=== PATIENT | female | born 1970 | race Caucasian/White ===

== ENCOUNTER 2016-10-03 15:30 | Emergency (ER) | payer BC ==
[2016-10-03 15:53] VITALS: RESP 18
--- NOTE | 2016-10-03 16:03 | ED ---
General Adult HPI - General Chief complaint: Extremity Injury, Lower Stated complaint: left knee pain Time Seen by Provider: 10/03/16 15:56 Source: patient, RN notes reviewed Mode of arrival: ambulatory Limitations: no limitations - History of Present Illness Initial comments: Patient 46-year-old female who presents emergency room today with chief complaint of injury to the left knee that occurred approximately 2 weeks ago. She does admit that a box fell onto the anterior aspect of left knee. She does admit to pain locally to this area also the back of the left knee. She seems to be worse with bending at the left knee. She states she has been able ambulate. She does admit to some mild left-sided calf tenderness. She denies any other complaints or associated symptoms. Patient denies any recent fever, chills, shortness of breath, chest pain, back pain, abdominal pain, nausea or vomiting, numbness or tingling, dysuria or hematuria, constipation or diarrhea, headaches or visual changes, or any other complaints. - Related Data Allergies Allergy/AdvReac Type Severity Reaction Status Date / Time No Known Allergies Allergy Verified 10/03/16 15:53 Review of Systems ROS Statement: Those systems with pertinent positive or pertinent negative responses have been documented in the HPI. ROS Other: All systems not noted in ROS Statement are negative. Past Medical History Additional Past Medical History / Comment(s): ms History of Any Multi-Drug Resistant Organisms: None Reported Past Surgical History: No Surgical Hx Reported Past Psychological History: No Psychological Hx Reported Smoking Status: Never smoker Past Alcohol Use History: None Reported Past Drug Use History: None Reported General Exam - General Exam Comments Initial Comments: General: The patient is awake and alert, in no distress, and does not appear acutely ill. Neck: The neck is supple, there is no tenderness or JVD. Cardiovascular: There is a regular rate and rhythm. No murmur, rub or gallop is appreciated. Respiratory: Lungs are clear to auscultation, respirations are non-labored, breath sounds are equal. No wheezes, stridor, rales, or rhonchi. Musculoskeletal: Normal appearance of her left knee no obvious swelling or deformity. Shows good range of motion. Mild tenderness posterior aspect of left calf. Sensations intact with pulses equal bilaterally 2+ strength is 5/5. Neurological: A&O x 3. CN II-XII intact, There are no obvious motor or sensory deficits. Coordination appears grossly intact. Speech is normal. Skin: Skin is warm and dry and no rashes or lesions are noted. Psychiatric: Normal mood and affect. Limitations: no limitations Course Vital Signs 10/03/16 15:50 Temperature 98.3 F Pulse Rate 75 Respiratory 18 Rate Blood Pressure 117/71 O2 Sat by Pulse 100 Oximetry Medical Decision Making - Medical Decision Making Ultrasound negative for any evidence of DVT. Patient's x-rays negative for any acute abnormalities. Results were discussed with the patient. Patient advised follow-up the family doctor. She is advised to discuss possible options of MRI. She is not from this area she lives in [place], [place]. Patient advised ice elevate the affected area and use ibuprofen for pain. Disposition Clinical Impression: Knee injury Disposition: HOME SELF-CARE Condition: Good Instructions: Knee Pain (ED) Additional Instructions: Please follow-up family doctor and discuss options of a possible MRI. Please discuss that he was seen here in the emergency room had negative ultrasound for DVT and negative x-rays. Please continue to ice elevate the affected area and use ibuprofen for pain. Please return to emergency room if any symptoms increase or worsen or for any other concerns. Time of Disposition: 17:04
--- NOTE | 2016-10-03 16:24 | XR ---
EXAMINATION TYPE: XR knee complete LT DATE OF EXAM: 10/03/2016 4:18 PM CLINICAL HISTORY: pain TECHNIQUE: Three views of the left knee are obtained. COMPARISON: None. FINDINGS: There is no acute fracture/dislocation. The tri-compartment joint spaces appear within no rmal limits. Small suprapatellar joint effusion is noted. The overlying soft tissue appears unremark able. IMPRESSION: There is no acute fracture or dislocation ICD 10 NO FRACTURE, INITIAL EVALUATION
--- NOTE | 2016-10-03 17:05 | US ---
EXAMINATION TYPE: US venous doppler duplex LE LT DATE OF EXAM: 10/03/2016 4:55 PM COMPARISON: NONE CLINICAL HISTORY: Pain. SIDE PERFORMED: left TECHNIQUE: The lower extremity deep venous system is examined utilizing real time linear array sonog sinan with graded compression, doppler sonography and color-flow sonography. VESSELS IMAGED: External Iliac Vein (EIV) Common Femoral Vein Deep Femoral Vein Greater Saphenous Vein * Femoral Vein Popliteal Vein Small Saphenous Vein * Proximal Calf Veins (* superficial vessels) Left Leg: Appears negative for DVT. IMPRESSION: Grayscale, color doppler, spectral doppler imaging performed of the deep veins of the lo wer extremities. There is normal flow, compressibility, vascular waveforms bilaterally. Normal exam . No evidence of deep venous thrombosis in the left leg.
[2016-10-03 17:22] VITALS: BP 133/79; PULSE 61; TEMP 97.9
== END 2016-10-03 17:21 | disposition home or self-care (01) ==
LOC: EC 15:30
DX: S89.92XA Unspecified injury of left lower leg, initial encounter (principal); W20.8XXA Other cause of strike by thrown, projected or falling object, initial encounter; Y92.009 Unspecified place in unspecified non-institutional (private) residence as the place of occurrence of the external cause
CPT/HCPCS: 99284